=== PATIENT | male | born 2000 | race Hispanic/Latino ===

== ENCOUNTER 2022-09-10 15:36 | Emergency (ER) | payer OTHER ==
[~2022-09-10] VITALS: Ht 167.6 cm; Wt 90.4 kg
[2022-09-10 19:10] VITALS: BP 153/70
== END 2022-09-10 19:11 | disposition home or self-care (01) ==
LOC: M ED 15:36
DX: S56.911A Strain of unspecified muscles, fascia and tendons at forearm level, right arm, initial encounter (principal); W22.8XXA Striking against or struck by other objects, initial encounter; Y92.139 Unspecified place military base as the place of occurrence of the external cause; Y99.1 Military activity

== ENCOUNTER 2022-09-19 09:48 | Emergency (ER) | payer OTHER ==
[~2022-09-19] VITALS: Ht 165.1 cm; Wt 86.2 kg
[2022-09-19 13:54] VITALS: BP 135/70
== END 2022-09-19 13:55 | disposition home or self-care (01) ==
LOC: M ED 09:48
DX: R22.31 Localized swelling, mass and lump, right upper limb (principal); X58.XXXA Exposure to other specified factors, initial encounter; Y99.1 Military activity